=== PATIENT | female | born 1960 | race Caucasian/White ===

== ENCOUNTER 2021-03-20 11:21 | Emergency (ER) | payer BC ==
[~2021-03-20] VITALS: Ht 162.6 cm; Wt 90.0 kg
--- NOTE | 2021-03-20 11:36 | NUR ---
pt biba from home for syncopal event x2 this am approx 30 min after taking oxycodone at 0900. pt had L knee replacement yesterday and rx pain medication oxycodone and tramadol. pt received 50 mcg fentanyl and 4mg zofran by [facility] well logging captain mud analysis. pt denies any trauma, midline cervical tenderness, n/v at this time. pt a&o, resps even and unlabored, vss, nadn. all monitors attached, nsr.
--- NOTE | 2021-03-20 11:55 | NUR ---
ERP at bedside for eval.
[2021-03-20] MEDS ORDERED: PLEASE ENTER ALLERGIES MC SCH (12:00)
[2021-03-20] MEDS ORDERED: SODIUM CHLORIDE 0.9% 1,000ML IVBOLUS ONE (12:00)
[2021-03-20 12:15] LABS: BASOPHILS % (AUTO) 0 % (0-1); EOSINOPHILS % (AUTO) 0 % (1-7); LYMPHOCYTES % (AUTO) 9 % (22-44); MEAN CORPUSCULAR HEMOGLOBIN 31.5 pg (27.0-34.8); MEAN CORPUSCULAR HGB CONC 32.9 g/dL (32.4-35.8); MEAN PLATELET VOLUME 9.6 fL (7.4-10.4); MONOCYTES % (AUTO) 8 % (2-9); NEUTROPHILS % (AUTO) 83 % (42-75); PLATELET COUNT 232 x10^3/uL (130-400); RED BLOOD COUNT 4.35 x10^6/uL (3.82-5.3); RED CELL DISTRIBUTION WIDTH 12.9 % (9.6-15.2)
[2021-03-20 12:29] LABS: ALBUMIN 3.7 g/dL (3.4-5.0); ANION GAP 10 mmol/L (5-15); CALCIUM 9.2 mg/dL (8.5-10.1); CHLORIDE 107 mmol/L (98-107)
[2021-03-20 12:31] LABS: ALANINE AMINOTRANSFERASE 41 U/L (12-78); ALKALINE PHOSPHATASE 84 U/L (45-117); BILIRUBIN,TOTAL 0.7 mg/dL (0.2-1.0); TOTAL PROTEIN 7.4 g/dL (6.4-8.2); TROPONIN I < 0.015 ng/mL (0.000-0.045)
--- NOTE | 2021-03-20 12:38 | NUR ---
pt to radiology
--- NOTE | 2021-03-20 12:56 | NUR ---
pt back from radiology, resting in bed, vss, nadn. all monitors attached, nsr, awaiting results and dispo.
[2021-03-20 13:59] VITALS: BP 123/81
--- NOTE | 2021-03-20 13:59 | NUR ---
PT AMBULATORY TO BATHROOM WITH STEADY GAIT WITH USE OF WALKER. PT DENIES FEELINGS OF DIZZINESS, STATES WALKING HELPS KNEE PAIN WELL. SINA MEDRANO.
--- NOTE | 2021-03-20 14:20 | NUR ---
anirudh Tucker at bedside to discuss POC
--- NOTE | 2021-03-20 14:43 | NUR ---
pt educated on dc instructions and return criteria/follow-up, verbalized understanding. pt taken to dc desk via wheelchair, accompanied by .
== END 2021-03-20 14:46 | disposition home or self-care (01) ==
LOC: ED 14:30
DX: R55 Syncope and collapse (principal); R42 Dizziness and giddiness; R07.89 Other chest pain; R94.31 Abnormal electrocardiogram [ECG] [EKG]; Z96.651 Presence of right artificial knee joint
CPT/HCPCS: 36415; 70450; 71045; 80053; 83880; 84484; 85025; 93005; 96360; 99285; J7030